=== PATIENT | male | born 1980 | race Caucasian/White ===

== ENCOUNTER → 2019-08-04 15:52 | Outpatient (BNVA) | payer BC, SELFPAY | PROVIDERS: Family Provider Family Medicine; PCP Family Medicine; Visit Provider Family Medicine | DX: I10 Essential (primary) hypertension (principal); M54.5 Low back pain; J06.9 Acute upper respiratory infection, unspecified | CPT/HCPCS: 80048; 80061 ==

== ENCOUNTER → 2020-08-23 10:42 | Outpatient (BNVA) | payer BC, SELFPAY | PROVIDERS: Family Provider Family Medicine; PCP Family Medicine; Visit Provider Family Medicine | DX: I10 Essential (primary) hypertension (principal); M54.5 Low back pain; G43.109 Migraine with aura, not intractable, without status migrainosus; Z13.220 Encounter for screening for lipoid disorders; Z13.6 Encounter for screening for cardiovascular disorders; K58.0 Irritable bowel syndrome with diarrhea | CPT/HCPCS: 80053; 80061 ==

== ENCOUNTER → 2020-11-24 11:57 | Outpatient (BNVA) | payer BC, SELFPAY | PROVIDERS: Family Provider Family Medicine; PCP Family Medicine; Visit Provider Nurse Practitioner Family | DX: J06.9 Acute upper respiratory infection, unspecified (principal); Z20.822 Contact with and (suspected) exposure to COVID-19 | CPT/HCPCS: 87635 ==

== ENCOUNTER → 2020-12-17 15:51 | Outpatient (BNVA) | payer BC, SELFPAY | PROVIDERS: Family Provider Family Medicine; PCP Family Medicine; Visit Provider Emergency Medicine | DX: U07.1 COVID-19 (principal); J98.8 Other specified respiratory disorders | CPT/HCPCS: 71046 ==

== ENCOUNTER → 2021-11-30 10:42 | Outpatient (BNVA) | payer BC, SELFPAY | PROVIDERS: Family Provider Family Medicine; PCP Family Medicine; Visit Provider Family Medicine | DX: M54.2 Cervicalgia (principal); G89.29 Other chronic pain; I10 Essential (primary) hypertension; Z13.220 Encounter for screening for lipoid disorders; Z13.6 Encounter for screening for cardiovascular disorders; R53.83 Other fatigue; Z68.41 Body mass index [BMI] 40.0-44.9, adult; G47.10 Hypersomnia, unspecified; R39.198 Other difficulties with micturition; R53.82 Chronic fatigue, unspecified | CPT/HCPCS: 80053; 80061; 81000; 82607; 82652; 84402; 84403; 84443; 85025 ==

== ENCOUNTER 2021-12-08 06:00 | Outpatient (CLI) | payer BC, SELFPAY | END 2021-12-08 06:01 | disposition home or self-care (01) | LOC: LAB 12-09 12:16 | PROVIDERS: PCP Family Medicine; Visit Provider Family Medicine | DX: E34.9 Endocrine disorder, unspecified (principal) | CPT/HCPCS: 84402; 84403 ==

== ENCOUNTER 2022-09-02 16:16 | Emergency (ER) | payer BC, SELFPAY ==
[2022-09-02 16:26] VITALS: BP 158/100; PULSE 75; RESP 19; TEMP 36.5; O2SAT 98; BMI 39.3
--- NOTE | 2022-09-02 16:51 | ED_ITS ---
HPI - General Adult General: Chief complaint: General Medical Stated complaint: rectal bleeding Time Seen by Provider: 09/02/22 16:42 Source: patient Mode of arrival: ambulatory History of Present Illness: This 42-year-old male presents to the ER with rectal bleeding. For the last 6 months, he has been noticing blood each time he wipes himself after using the bathroom. However, over the last few months, he has been noticing more blood mixed with his stool. Recently, bowel movements have become painful. In the last week, they have become much more painful. Patient has a past history of hemorrhoids but he notes that this pain is worse than he has ever had in the past. He has a strong family history of colon cancer and is worried about it. He dad was diagnosed with colon cancer in his 40s and one of his uncles at 51 from colon cancer. He has no fever, nausea, vomiting or abdominal pain. He appears clinically stable. Associated symptoms: Deny chest pain or headache(s) Review of Systems Const: Denies: chills, body aches or change in appetite Eyes: Denies: change in vision or eye discharge ENMT: Denies: throat pain, dental pain or nasal discharge Card: Denies: chest pain or lightheadedness GI: Reports: pain on defecation, rectal pain, hematochezia and other : Denies: dysuria Musc: Denies: neck pain or back pain Neuro: Denies: headache(s) or weakness in extremities Psych: Denies: depression Chong/Lymph: Denies: easy bruising All/Imm: Denies: urticaria, tongue swelling or facial swelling PFS ED PFSH: Medical History (Updated 09/02/22 @ 18:36 by Sona Sutherland MD) Lumbar back pain Migraine aura without headache Surgical History No significant past surgical history Social History Smoking and tobacco status: never smoked Second hand smoke exposure: No Smoking risk assessment/counseling performed?: No Alcohol intake: never Desire information about alcohol rehabilitation?: No Counseling given: No Desire information about substance/drug rehabilitation?: No Counseling given: No Physical Exam Const: COMMON NORMALS: no acute distress, patient oriented x3, no limitations and alert HENMT: COMMON NORMALS: normocephalic HEAD & SCALP: normocephalic Eye: COMMON NORMALS: EOMs intact bilaterally Neck/C-Spine: COMMON NORMALS: full ROM and supple Chest: COMMONS NORMALS: normal inspection of the chest Resp: COMMON NORMALS: normal respiratory effort, No retractions, No use of accessory muscles and clear to auscultation bilaterally AUSCULTATION: clear to auscultation bilaterally Cardio: COMMON NORMALS: regular rate, regular rhythm and No murmurs present (Cardio) RATE: regular rate RHYTHM: regular rhythm GI: COMMON NORMALS: Normal to inspection, nondistended, normoactive bowel sounds present and non-tender : COMMON NORMALS: Yes no CVA tenderness BLADDER/KIDNEY EXAM: Yes no CVA tenderness Back/Pelvis: COMMON NORMALS: no CVA tenderness and no thoracic nor lumbar tenderness Extremity: GENERAL: Yes normal exam except as noted Neuro: COMMON NORMALS: patient oriented x3 and no focal motor deficits SENSORIUM/ORIENTATION: Yes alert Psych: COMMON NORMALS: mental status grossly normal and cooperative Course Vital Signs: Vital signs: Vital Signs Temperature 97.7 F 09/02/22 16:26 Pulse Rate 75 09/02/22 16:26 Respiratory Rate 19 H 09/02/22 16:26 Blood Pressure 158/100 09/02/22 16:26 Pulse Oximetry 98 09/02/22 16:26 Oxygen Delivery Me thod 09/02/22 16:26 [facility] - General Adult Medical Decision Making Medical decision making: Patient has a history of hemorrhoids and clinical exam confirms hemorrhoid. He will be treated with Anusol HC suppositories and was advised to avoid constipation and follow-up with his primary care physician. Reasons to return were discussed Lab Data 09/02/22 17:43 09/02/22 17:43 Laboratory Results WBC 11.0 10^3/uL (4.0-10.0) H 09/02/22 17:43 RBC 6.07 10^6/uL (4.1-5.3) H 09/02/22 17:43 Hgb 17.2 g/dL (11.7-16.6) H 09/02/22 17:43 Hct 54.1 % (42.0-52.0) H 09/02/22 17:43 MCV 89.1 fl (80-94) 09/02/22 17:43 MCH 28.3 pg (28.0-34.0) 09/02/22 17:43 MCHC 31.8 g/dL (30.0-36.0) 09/02/22 17:43 RDW 13.7 % (12.1-15.1) 09/02/22 17:43 Plt Count 313 10^3/cmm (130-400) 09/02/22 17:43 MPV 10.4 fL (7.4-10.4) 09/02/22 17:43 Neut % (Auto) 69.3 % 09/02/22 17:43 Lymph % (Auto) 22.8 % 09/02/22 17:43 [place] % (Auto) 6.3 % 09/02/22 17:43 Eos % (Auto) 0.8 % 09/02/22 17:43 Baso % (Auto) 0.5 % 09/02/22 17:43 Neut # (Auto) 7.63 10^3/uL (1.8-7.7) 09/02/22 17:43 Lymph # (Auto) 2.5 10^3/uL (0.8-4.8) 09/02/22 17:43 [place] # (Auto) 0.7 10^3/uL (0.2-0.9) 09/02/22 17:43 Eos # (Auto) 0.1 10^3/uL (0.0-0.8) 09/02/22 17:43 Baso # (Auto) 0.1 10^3/uL (0.0-0.1) 09/02/22 17:43 Nucleated RBC % (auto) 0 % 09/02/22 17:43 Nucleated RBCs # 0.0 /100WBC 09/02/22 17:43 Sodium 138 mmol/L (136-145) 09/02/22 17:43 Potassium 4.0 mmol/L (3.5-5.1) 09/02/22 17:43 Chloride 102 mmol/L (98-107) 09/02/22 17:43 Carbon Dioxide 26 mmol/L (22-29) 09/02/22 17:43 Anion Gap 14.0 (5-19) 09/02/22 17:43 BUN 15 mg/dL (6-20) 09/02/22 17:43 Creatinine 0.8 mg/dL (0.7-1.2) 09/02/22 17:43 GFR Calculation 105.5 mL/min (90-130) 09/02/22 17:43 Glucose 106 mg/dL (65-115) 09/02/22 17:43 Calculated Osmolality 287 mOsm/kg (285-295) 09/02/22 17:43 Calcium 9.4 mg/dL (8.5-10.5) 09/02/22 17:43 Total Bilirubin 0.3 mg/dL (0.15-1.2) 09/02/22 17:43 AST 16 U/L (0-40) 09/02/22 17:43 ALT 12 U/L (0-41) 09/02/22 17:43 Alkaline Phosphatase 91 U/L (40-130) 09/02/22 17:43 Total Protein 7.2 g/dL (6.6-8.7) 09/02/22 17:43 Albumin 4.3 g/dL (3.5-5.2) 09/02/22 17:43 Globulin 2.9 g/dL (1.3-4.6) 09/02/22 17:43 Discharge Plan Discharge Patient Disposition: Home Clinical Impression: Hemorrhoids Condition: Stable Prescriptions: New Anusol-HC 25 mg suppository 25 mg MI BID PRN (Reason: hemorrhoids) Qty: 24 0RF No Action lisinopril 40 mg tablet 40 mg PO DAILY 30 Days Qty: 30 11RF naproxen 500 mg tablet 500 mg PO BID PRN (Reason: back pain) 30 Days Qty: 60 11RF Rx Instructions: WITH FOOD acetaminophen-codeine 300-30 mg tablet 1 tab PO Q4H PRN (Reason: pain) Qty: 10 0RF dexamethasone 2 mg tablet 6 mg PO DAILY 5 Days Qty: 15 0RF Rx Instructions: start this on Sunday methocarbamol 750 mg tablet 750 mg PO TID 5 Days Qty: 15 0RF hydrochlorothiazide 25 mg tablet 25 mg PO QAM 30 Days Qty: 30 1RF Discharge Orders: Discharge ED (Routine); Ordered 09/02/22 Ordered By: Sona Sutherland Referrals: Eva Sheldon [Primary Care Provider] - Discharge Diet: As Directed Discharge Activity: Resume usual activity Patient Instructions: Opioid Safety, Pain Management Activity Restrictions/Additional Instructions: Increase fiber in your diet including fruits and vegetables to avoid constipation. Use the suppositories as directed. Follow-up with a surgeon or parts counterman to arrange for an outpatient colonoscopy. Follow-up with your primary care physician. Return with new or worsening symptoms. Coding Level of Care Code ED [employer] Pr[employer] for Chg Fwd Exam Comprehensive
[2022-09-02 17:52] LABS: Basophils # 0.1 10^3/uL (0.0-0.1); Basophils % 0.5 %; Eosinophils # 0.1 10^3/uL (0.0-0.8); Eosinophils % 0.8 %; Hematocrit 54.1 % (42.0-52.0); Hemoglobin 17.2 g/dL (11.7-16.6); Lymphocytes # 2.5 10^3/uL (0.8-4.8); Lymphocytes % 22.8 %; Mean Corpuscular HGB Conc 31.8 g/dL (30.0-36.0); Mean Corpuscular Hemoglobin 28.3 pg (28.0-34.0); Mean Corpuscular Volume 89.1 fl (80-94); Mean Platelet Volume 10.4 fL (7.4-10.4); Monocytes # 0.7 10^3/uL (0.2-0.9); Monocytes % 6.3 %; Neutrophils # 7.63 10^3/uL (1.8-7.7); Neutrophils % 69.3 %; Nucleated Red Blood Cells % 0 %; Platelet Count 313 10^3/cmm (130-400); Red Blood Count 6.07 10^6/uL (4.1-5.3); Red Cell Distribution Width 13.7 % (12.1-15.1)
[2022-09-02 18:25] LABS: Alanine Aminotransferase 12 U/L (0-41); Albumin Level 4.3 g/dL (3.5-5.2); Alkaline Phosphatase 91 U/L (40-130); Aspartate Amino Transferase 16 U/L (0-40); Blood Urea Nitrogen 15 mg/dL (6-20); Calcium 9.4 mg/dL (8.5-10.5); Carbon Dioxide 26 mmol/L (22-29); Chloride 102 mmol/L (98-107); Globulin 2.9 g/dL (1.3-4.6); Glomerular Filtration Rate 105.5 mL/min (90-130); Glucose 106 mg/dL (65-115); Osmolality Calculated 287 mOsm/kg (285-295); Sodium 138 mmol/L (136-145); Total Bilirubin 0.3 mg/dL (0.15-1.2); Total Protein 7.2 g/dL (6.6-8.7)
== END 2022-09-02 18:40 | disposition home or self-care (01) ==
PROVIDERS: Emergency Provider Family Medicine; PCP Nurse Practitioner Family
DX: K64.9 Unspecified hemorrhoids (principal)
CPT/HCPCS: 36415; 80053; 85025; 99283